=== PATIENT | male | born 1950 | race Caucasian/White ===

== ENCOUNTER 2017-11-28 15:30 | Outpatient (CLI) | payer OTHER ==
[~2017-11-28 15:30] MED LIST: ONGLYZA5 MG PO
== END 2017-11-28 15:40 | disposition home or self-care (01) ==
LOC: LAB 15:30
DX: R97.20 Elevated prostate specific antigen [PSA] (principal)

== ENCOUNTER 2018-01-03 08:14 | Outpatient (CLI) | payer OTHER | END 2018-01-03 08:25 | disposition home or self-care (01) | LOC: SONOGRAMA 08:14 | DX: R97.20 Elevated prostate specific antigen [PSA] (principal) ==

== ENCOUNTER 2018-10-04 20:38 | Outpatient (CLI) | payer OTHER | END 2018-10-04 20:49 | disposition home or self-care (01) | LOC: LAB 20:38 | DX: R97.20 Elevated prostate specific antigen [PSA] (principal) ==

== ENCOUNTER 2018-12-26 07:20 | Outpatient (CLI) | payer OTHER | END 2018-12-26 07:21 | disposition home or self-care (01) | LOC: SONOGRAMA 07:20 | DX: R97.20 Elevated prostate specific antigen [PSA] (principal) ==

== ENCOUNTER 2019-07-16 08:30 | Inpatient (IN) | payer OTHER ==
[~2019-07-16] VITALS: Ht 172.7 cm; Wt 79.8 kg
[2019-07-16] MEDS ORDERED: JANUMET XR 50-1 EAC1 PO (10:00)
== END 2019-07-25 10:12 | disposition home or self-care (01) | DRG 708 ==
LOC: SURH 07-22 05:25 → O/R 07-22 05:25 → SURH 07-22 07:00
PROVIDERS: ADMIT Urology
PROC: 07BC0ZX Excision of Pelvis Lymphatic, Open Approach, Diagnostic (ICD-10-PCS; 2019-07-22)
PROC: 4A033R1 Measurement of Arterial Saturation, Peripheral, Percutaneous Approach (ICD-10-PCS; 2019-07-22)
PROC: 0VT00ZZ Resection of Prostate, Open Approach (ICD-10-PCS; principal; 2019-07-22 07:00)
DX: C61 Malignant neoplasm of prostate (principal); E11.21 Type 2 diabetes mellitus with diabetic nephropathy; E11.22 Type 2 diabetes mellitus with diabetic chronic kidney disease; N18.2 Chronic kidney disease, stage 2 (mild); Z85.07 Personal history of malignant neoplasm of pancreas